=== PATIENT | female | born 1960 ===

== ENCOUNTER 2017-06-05 16:58 | Emergency (ER) | payer OTHER ==
[2017-06-05 17:31] VITALS: BP 104/69; PULSE 88; RESP 18; TEMP 98; O2SAT 100
--- NOTE | 2017-06-05 18:14 | C.PDOC ---
History Of Present Illness CC: "Sore Throat" HPI: 56 year old female with no past medical history presents to the ED with a sore throat. Patient states for past few weeks she has had cold like symptoms but 2 days ago her throat began to bother her. She states she had a subjective fever this morning and chills last night. She denies having problems swallowing and has been able to eat. She states she has been coughing with sometimes tinge of blood in her sputum. She denies sick contacts at home. She denies nausea, vomiting, diarrhea or constipation. PMD: denies Past Medication History: denies Past Surgical History: denies Medications: denies Allergies: MARLO (Tori Gomez) Time Seen by Provider: 06/05/17 17:50 Chief Complaint (Nursing): Cough, Cold, Congestion Past Medical History - Medical History PMH: No Chronic Diseases Family History: States: No Known Family Hx - Social History Hx Alcohol Use: No Hx Substance Use: No - Immunization History Hx Tetanus Toxoid Vaccination: No Hx Influenza Vaccination: Yes Hx Pneumococcal Vaccination: No Vital Signs: Last Vital Signs Temp 98.0 F 06/05/17 17:29 Pulse 88 06/05/17 17:29 Resp 18 06/05/17 17:29 BP 104/69 06/05/17 17:29 Pulse Ox 100 06/05/17 18:32 Review Of Systems Constitutional: Positive for: Fever, Chills. Negative for: Sweats ENT: Positive for: Nose Congestion, Throat Pain Cardiovascular: Negative for: Chest Pain Respiratory: Positive for: Cough. Negative for: Shortness of Breath Gastrointestinal: Negative for: Nausea, Vomiting, Diarrhea, Constipation Genitourinary: Negative for: Dysuria Physical Exam - Physical Exam Appears: Non-toxic, No Acute Distress Skin: Normal Color Head: Atraumatic, Normacephalic Eye(s): bilateral: Normal Inspection, PERRL, EOMI Ear(s): Bilateral: Normal Nose: Normal Oral Mucosa: Moist Throat: Erythema, No Exudate, No Drooling, No Mass Lymphatic: Adenopathy (anterior cervical lymph adenopathy) Cardiovascular: Rhythm Regular Respiratory: Normal Breath Sounds, No Decreased Breath Sounds, No Rales, No Rhonchi, No Stridor, No Wheezing Gastrointestinal/Abdominal: Normal Exam, Bowel Sounds (normal), Soft, No Tenderness ED Course And Treatment O2 Sat by Pulse Oximetry: 100 Medical Decision Making Medical Decision Making: Upper respiratory infection secondary to viral - Anti-inflammatory - Motrin 600mg q6h as needed for sore throat and fever (Tori Gomez) Disposition Discussed With DrAbhishek: Jian Gaytan DO Doctor Will See Patient In The: ED - Disposition Disposition Time: 18:31 - Disposition Disposition: HOME/ ROUTINE Condition: GOOD Additional Instructions: Please follow up with the [facility]: [place] [address] Please call to schedule your appointment #[phone] Forms: Dr. Scribbles (Burmese) - Clinical Impression Clinical Impression: Upper respiratory infection, viral - PA / [employer] / Resident Statement SHRAON has reviewed & agrees with the documentation as recorded. SHARON has examined the patient and agrees with the treatment plan.
== END 2017-06-05 19:00 | disposition home or self-care (01) ==
LOC: C.ER 16:58
DX: J06.9 Acute upper respiratory infection, unspecified (principal)

== ENCOUNTER 2017-06-09 06:35 | Emergency (ER) | payer OTHER ==
[2017-06-09 06:49] VITALS: BP 100/68; PULSE 110; RESP 18; TEMP 98.8; O2SAT 99
[2017-06-09] MEDS ORDERED: Amoxicillin-Clav 875-125 mg Tab PO STA (07:40)
--- NOTE | 2017-06-09 07:53 | C.PDOC ---
History Of Present Illness 56 yo female come in for re-evaluation of clod sx for past 3-4 days associated with chills, subjective fever, nasal congestion, runny nose, sore throat. As per pt, for past 24 hours developed intermittent right sided frontal headache, " was unable to sleep last night due to stuffy nose". Otherwise, pt denies high fever, severe headache, dizziness, drooling, dyspnea, cough, CP, SOB, wheezing, abd. pain, V/D, back pain, UTI sx. Ambulate to ED for evaluation, not in nay apparent distress. Time Seen by Provider: 06/09/17 07:13 Chief Complaint (Nursing): Cough, Cold, Congestion History Per: Patient Past Medical History Reviewed: Historical Data, Nursing Documentation, Vital Signs Vital Signs: Last Vital Signs Temp 98.8 F 06/09/17 06:44 Pulse 110 H 06/09/17 06:44 Resp 18 06/09/17 06:44 BP 100/68 06/09/17 06:44 Pulse Ox 99 06/09/17 06:44 - Medical History PMH: No Chronic Diseases Family History: States: No Known Family Hx - Social History Hx Tobacco Use: No Hx Alcohol Use: No Hx Substance Use: No - Immunization History Hx Tetanus Toxoid Vaccination: No Hx Influenza Vaccination: Yes Hx Pneumococcal Vaccination: No Review Of Systems Except As Marked, All Systems Reviewed And Found Negative. Constitutional: Positive for: Chills, Malaise. Negative for: Fever ENT: Positive for: Nose Discharge, Nose Congestion, Throat Pain, Throat Swelling. Negative for: Ear Pain, Ear Discharge Cardiovascular: Negative for: Chest Pain Respiratory: Negative for: Cough, Shortness of Breath, Wheezing Gastrointestinal: Negative for: Nausea, Vomiting, Abdominal Pain, Diarrhea Genitourinary: Negative for: Dysuria Musculoskeletal: Negative for: Neck Pain, Back Pain Skin: Negative for: Rash Neurological: Positive for: Headache. Negative for: Weakness, Numbness, Altered Mental Status, Dizziness Physical Exam - Physical Exam Appears: Well, Non-toxic, No Acute Distress Skin: Normal Color, Warm, Dry, No Rash Head: Normacephalic Eye(s): bilateral: PERRL Ear(s): Bilateral: Normal Nose: No Flaring, Discharge (B/L congestion with scant clear rhinorrhea), Other (B/L paranasal tenderness, no edema or erythema.) Oral Mucosa: Moist, No Drooling Throat: Erythema (midl b/L), No Drooling Neck: Trachea Midline, Supple, Other ((-) meningeal sign) Cardiovascular: Rhythm Regular, No Murmur, No JVD Respiratory: No Decreased Breath Sounds, No Accessory Muscle Use, No Rales, No Rhonchi, No Stridor, No Wheezing Gastrointestinal/Abdominal: Soft, No Tenderness, No Distention, No Guarding Extremity: Normal ROM, No Deformity, No Swelling Neurological/Psych: Oriented x3, Normal Speech ED Course And Treatment O2 Sat by Pulse Oximetry: 99 Pulse Ox Interpretation: Normal - Radiology CXR: Interpreted by Me, Viewed By Me CXR Interpretation: Yes: No Acute Disease Progress Note: On re-evaluation, pt is afebrile, hemodynamicaly stable. non- toxic. Ambulatory in ED with stable gait. PulseOx 99% RA. ENT: exam c/w acute sinusitis. uvula midline, no edema. neck: Supple, (-) meningeal sign. Lungs: CTA B/L, BS equal B/L. ABd: benign. Neuorlogicaly intact. CXR review and appear snormal. Pt ahs clinical findings c/w sinusitis. Pt advised. ref. to f/u with PMD in 2-3 days for re-eavl. return if any new changes. Disposition Counseled Patient/Family Regarding: Studies Performed, Diagnosis, Need For Followup, Rx Given - Disposition Referrals: [facility] [Outside] Disposition: HOME/ ROUTINE Disposition Time: 07:51 Condition: STABLE Additional Instructions: Encourage fluids Take medication as prescribed Follow up with PMD in 2-3 days for re-evaluation. return to ED if any worsening or new changes. Prescriptions: Amoxicillin/Clavulanate [Augmentin 875 MG-125 MG] 1 tab PO BID #14 tab Loratadine [Claritin] 10 mg PO DAILY #14 tab Prednisone [Deltasone] 40 mg PO DAILY #6 tablet Instructions: Sinusitis in Adults Forms: [facility] (Syriac), Work Excuse Print Language: RUSSIAN - Clinical Impression Clinical Impression: Sinusitis
[2017-06-09] MEDS ORDERED: Amoxicillin-Clav 875-125 mg Tab PO ONE (08:15)
--- NOTE | 2017-06-09 09:19 | RAD ---
Chest x-ray two views History: Cough. Comparison: None available. Findings: Biapical pleural thickening with upper lobe granulomatous changes. Diffuse increased interstitial lung markings. Bibasilar breast and nipple shadows. Heart size within normal limits. Degenerative changes spine and shoulders. Impression: Biapical pleural thickening with upper lobe granulomatous changes. Diffuse increased interstitial lung markings. Bibasilar breast and nipple shadows.
== END 2017-06-09 08:27 | disposition home or self-care (01) ==
LOC: C.ER 06:35
DX: J32.9 Chronic sinusitis, unspecified (principal)